=== PATIENT | female | born 1970 | race Caucasian/White ===

== ENCOUNTER 2017-03-31 08:30 | Emergency (ER) | payer BC ==
[~2017-03-31] VITALS: Ht 157.5 cm; Wt 68.0 kg
[2017-03-31 08:32] VITALS: TEMP 37; Ht 157.5 cm; Wt 68.0 kg
[2017-03-31] MEDS ORDERED: SODIUM CHLORIDE 0.9% 1000ML 1,000 ML IV STA (09:07)
[2017-03-31] MEDS ORDERED: SODIUM CHLORIDE 0.9% 1000ML 2,000 ML IV STA (09:07)
[2017-03-31] MEDS ORDERED: CHOL1000 PO (09:24)
[2017-03-31] MEDS ORDERED: CITA20TA9 PO (09:24)
[2017-03-31] MEDS ORDERED: TRAZ50TA35 PO (09:24)
[2017-03-31] MEDS ORDERED: DOCU-94 PO (09:24)
[2017-03-31 09:39] LABS: BASO % 0.1 %; BASO ABS # 0.02 K/uL (0-0.2); COMPLETE YES; EOS % 0.1 %; HEMATOCRIT 39.5 % (37-47); IG% 0.4 %; LYMPH % 7.2 %; LYMPH ABS # 1.48 K/uL (1.2-3.4); MEAN CORPUSCULAR HEMOGLOBIN 31.3 pg (25-34); MEAN CORPUSCULAR HGB CONC 35.2 g/dl (32-36); MEAN PLATELET VOLUME 9.5 fL (7.4-10.4); MONO % 7.9 %; NEUT % 84.3 %; PLATELET COUNT 232 K/uL (130-400); RED BLOOD COUNT 4.44 M/uL (4.2-5.4); WHITE BLOOD COUNT 20.53 K/uL (4.8-10.8)
[2017-03-31 09:56] LABS: BUN/CREATININE RATIO 11.3 (10-20); CALCIUM 8.9 mg/dl (8.5-10.1); CREATININE 0.91 mg/dl (0.60-1.20); POTASSIUM 2.8 mmol/L (3.5-5.1)
[2017-03-31 09:59] LABS: ALB/GLOB RATIO 0.9 (0.9-2)
[2017-03-31 10:00] LABS: PREG INTERNAL NEGATIVE QC NEG CLEAR BACKGROUND; PREG INTERNAL POSITIVE QC POS CONTROL LINE
--- NOTE | 2017-03-31 10:02 | DIAGNOSTIC IMAGING REPORT ---
CT FACIAL BONES-MXILLOFAC WITHOUT CT DOSE: CLINICAL HISTORY: Facial pain status post trauma. Syncope. Dizziness. COMPARISON STUDY: No previous studies for comparison. TECHNIQUE: Helical images were acquired in the transverse plane. The study was reviewed and analyzed on the independent 3-D workstation. The pterygoid plates appear intact. The zygomatic arches appear intact. The globes appear intact. There is no evidence of orbital emphysema. The orbital childress and floor appear intact. The mandibular condyles appear intact. There is right frontal scalp edema. There is mild pansinus mucosal thickening. IMPRESSION: No facial fractures identified. Electronically signed by: Ant Nolasco M.D. 03/31/2017 10:01 AM Dictated Date/Time: 03/31/2017 9:59 AM
--- NOTE | 2017-03-31 10:02 | DIAGNOSTIC IMAGING REPORT ---
HEAD CT NONCONTRAST CT DOSE: 843.28 mGy.cm HISTORY: Trauma SYNCOPAL EPISODE, DIZZY, HEAD TRAUMA TECHNIQUE: Multiaxial CT images of the head were performed without the use of intravenous contrast. Comparison: None. Findings: The paranasal sinuses and mastoid air cells are clear. The calvarium and skull base are intact. The ventricles and sulci are within normal limits. There is no mass, hematoma, midline shift, or acute infarct. Impression: No acute intracranial abnormality. Electronically signed by: Jean Acharya M.D. 03/31/2017 10:01 AM Dictated Date/Time: 03/31/2017 9:59 AM
[2017-03-31] MEDS ORDERED: POTASSIUM CHLORIDE 10 MEQ / 100ML WTR IV STA (10:13)
[2017-03-31] MEDS ORDERED: POTASSIUM CHLORIDE 10 MEQ TABCR PO STA (10:13)
[2017-03-31] MEDS ORDERED: ONDANSETRON INJ 2 MG/ML 2 ML VIAL IV STA (10:36)
[2017-03-31] MEDS ORDERED: LORAZEPAM 2 MG/ML 1 ML VIAL IV STA (10:36)
[2017-03-31 10:51] LABS: URINE APPEARANCE CLEAR (CLEAR); URINE BILIRUBIN NEG (NEG); URINE COLOR YELLOW; URINE EPITHELIAL CELL AUTO >30 /lpf (0-5); URINE NITRITE NEG (NEG); URINE SPECIFIC GRAVITY 1.005 (1.000-1.030); UROBILINOGEN NEG (NEG)
[2017-03-31 10:52] LABS: MANUAL MICROSCOPIC REQUIRED? NO; REVIEW REQ? NO
--- NOTE | 2017-03-31 10:54 | DIAGNOSTIC IMAGING REPORT ---
ABDOMEN 2VIEW W/PA CHEST RTN CLINICAL HISTORY: DIARRHEA, DIZZY, SYNCOPAL EPISODE dyspnea COMPARISON STUDY: No previous studies for comparison. FINDINGS: The soft tissues, psoas shadows, renal outlines and intestinal gas pattern appear normal. There is no evidence for bowel obstruction. There is no evidence for free intraperitoneal air. No abnormal abdominal calcifications are seen. A frontal view of the chest was performed and is unremarkable. IMPRESSION: Normal study. Electronically signed by: Jean Acharya M.D. 03/31/2017 10:52 AM Dictated Date/Time: 03/31/2017 10:52 AM
--- NOTE | 2017-03-31 12:44 | EMERGENCY ROOM VISIT NOTE ---
History First contact with patient: 08:41 Chief Complaint: NAUSEA Stated Complaint: NAUSEA,DIZZINESS,DIARRHEA History of Present Illness Patient is a generally healthy 38-year-old white female who presents to emergency department for evaluation of nausea, chills and diarrhea with associated syncopal episodes. Her symptoms started yesterday. She lives near [place] and was traveling here locally to visit family. Yesterday while in the car she noted feeling queasy, nauseous and having chills. Her diarrhea started around 5 PM last evening. She reported feeling subjectively hot and cold. She had multiple loose, watery bowel movements. She states that the diarrhea was essentially only liquid. Around 8 PM last night she went into the bathroom to have a bowel movement. She remembers being on the toilet, then remembers waking up and the floor of the bathroom. She had to get back on the toilet, and again passed out falling to the ground. She injured the bridge of the nose, and noted some bruising around her left eye after that fall. She reports getting up around 2 AM to go to the bathroom, and her reported hearing her fall in the bathroom. At that time she hit her right forehead when she passed out. He attended to her immediately. She was only unconscious for a few seconds. There was no seizure-like activity or incontinence. He accompanied her to the bathroom at 7:00 this morning and states that she passed out on the toilet for a few seconds, this time did not fall, as he was standing there. Her last episode of diarrhea was just prior to arrival. She denies blood. She denies any abdominal pain. She did take some Motrin last evening. She reports feeling very dizzy. Any position changes make her feel dizzy like she might pass out. Patient denies any unusual food or water consumption recently. She has been on multiple antibiotics recently for sinusitis, and then again after a skin cancer excision. She was on Augmentin, Ceftin and Keflex within the last several months. She denies any fever. There has been no vomiting. She denies any urinary symptoms. Review of Systems Review of systems as per HPI. All other systems reviewed were negative. 10 systems reviewed. Past Medical/Surgical History Medical Problems: (1) No Known Active Medical Problems Surgical Problems: (1) History of endometrial ablation (2) History of melanoma excision Electronic medical records are reviewed and summarized as above/below. See Problem List. Social History Smoking Status: Never Smoker Marital Status: Housing Status: lives with significant other Occupation Status: employed Current/Historical Medications Scheduled Cholecalciferol (Vitamin D3), 1 TAB PO DAILY Citalopram Hydrobromide (Celexa), 1 TAB PO QPM Trazodone Hcl (Trazodone), 75 MG PO QPM Scheduled PRN Docusate Sodium (Colace), 1 CAP PO DAILY PRN for Constipation Allergies Coded Allergies: No Known Allergies (Unverified , 03/31/17) Physical Exam Vital Signs Date Time Temp Pulse Resp B/P Pulse Ox O2 Delivery O2 Flow Rate FiO2 03/31/17 12:54 99 14 93/62 99 03/31/17 11:47 96 18 110/63 100 Room Air 03/31/17 10:51 90 21 106/56 99 Room Air 03/31/17 10:08 88 18 103/59 97 99 101/61 99 97/92 03/31/17 08:47 83 03/31/17 08:32 37.0 99 20 92/62 98 Room Air Physical Exam GENERAL: Patient is a well-appearing 46-year-old white female who is awake and alert and in moderate distress due to her dizziness. HEENT: Head -large right prefrontal hematoma. Pupils are equal, round, and reactive to light. Extraocular eye muscles are intact and sclera are anicteric. Ears - bilaterally patent canals with no evidence of hemotympanum. Nose - slight abrasion noted to the nasal bridge, moist nasal mucosa without evidence of trauma or discharge. Mouth - moist buccal mucosa with no trauma to the teeth or signs of malocclusion. Ecchymosis noted inferior to the left eye. She is tenderness in the left orbital bones. Neck: The neck is supple and there is no pain to palpation over the posterior cervical spine and no obvious step-offs or deformities. There is no JVD or tracheal deviation. Chest: There are no signs of deformities, contusions or abrasions to the chest wall. There is no obvious crepitus or paradoxical chest rise. Heart: Regular rate, and regular rhythm. There is a normal S1 and S2 with no murmurs, clicks, or gallops appreciated. Lungs: Breath sounds equal and clear to auscultation without wheezes, rales, or rhonchi heard. Abdomen: Bowel sounds are present. Abdomen is soft, nontender, nondistended. No guarding, rebound or rigidity noted. Extremities: No obvious trauma, deformities, contusions, or edema. There are easily palpable peripheral pulses. Neuro: The patient is awake and alert and easily able to follow commands. Muscle strength is 5 out of 5 in all 4 extremities. Otherwise, neuro exam is unremarkable. Back: The entire thoracic, lumbar, and sacral spine were palpated. No discomfort over the thoracic spine and lumbar spine. There are no obvious step- offs or deformities noted. There are no obvious signs of trauma such as contusions abrasions penetrations noted to the back. Medical Decision & Procedures ER Provider Diagnostic Interpretation: ABDOMEN 2VIEW W/PA CHEST RTN CLINICAL HISTORY: DIARRHEA, DIZZY, SYNCOPAL EPISODE dyspnea COMPARISON STUDY: No previous studies for comparison. FINDINGS: The soft tissues, psoas shadows, renal outlines and intestinal gas pattern appear normal. There is no evidence for bowel obstruction. There is no evidence for free intraperitoneal air. No abnormal abdominal calcifications are seen. A frontal view of the chest was performed and is unremarkable. IMPRESSION: Normal study. HEAD CT NONCONTRAST CT DOSE: 843.28 mGy.cm HISTORY: Trauma SYNCOPAL EPISODE, DIZZY, HEAD TRAUMA TECHNIQUE: Multiaxial CT images of the head were performed without the use of intravenous contrast. Comparison: None. Findings: The paranasal sinuses and mastoid air cells are clear. The calvarium and skull base are intact. The ventricles and sulci are within normal limits. There is no mass, hematoma, midline shift, or acute infarct. Impression: No acute intracranial abnormality. CT FACIAL BONES-MXILLOFAC WITHOUT CT DOSE: CLINICAL HISTORY: Facial pain status post trauma. Syncope. Dizziness. COMPARISON STUDY: No previous studies for comparison. TECHNIQUE: Helical images were acquired in the transverse plane. The study was reviewed and analyzed on the independent 3-D workstation. The pterygoid plates appear intact. The zygomatic arches appear intact. The globes appear intact. There is no evidence of orbital emphysema. The orbital childress and floor appear intact. The mandibular condyles appear intact. There is right frontal scalp edema. There is mild pansinus mucosal thickening. IMPRESSION: No facial fractures identified. Laboratory Results 03/31/17 09:15 Red Blood Count 4.44, Mean Corpuscular Volume 89.0, Mean Corpuscular Hemoglobin 31.3, Mean Corpuscular Hemoglobin Concent 35.2, Mean Platelet Volume 9.5, Neutrophils (%) (Auto) 84.3, Lymphocytes (%) (Auto) 7.2, Monocytes (%) (Auto) 7.9, Eosinophils (%) (Auto) 0.1, Basophils (%) (Auto) 0.1, Neutrophils # (Auto) 17.31, Lymphocytes # (Auto) 1.48, Monocytes # (Auto) 1.62, Eosinophils # (Auto) 0.02, Basophils # (Auto) 0.02 03/31/17 09:15 Test 03/31/17 09:15 03/31/17 09:27 03/31/17 10:15 White Blood Count 20.53 K/uL (4.8-10.8) Red Blood Count 4.44 M/uL (4.2-5.4) Hemoglobin 13.9 g/dL (12.0-16.0) Hematocrit 39.5 % (37-47) Mean Corpuscular Volume 89.0 fL (80-100) Mean Corpuscular Hemoglobin 31.3 pg (25-34) Mean Corpuscular Hemoglobin Concent 35.2 g/dl (32-36) Platelet Count 232 K/uL (130-400) Mean Platelet Volume 9.5 fL (7.4-10.4) Neutrophils (%) (Auto) 84.3 % Lymphocytes (%) (Auto) 7.2 % Monocytes (%) (Auto) 7.9 % Eosinophils (%) (Auto) 0.1 % Basophils (%) (Auto) 0.1 % Neutrophils # (Auto) 17.31 K/uL (1.4-6.5) Lymphocytes # (Auto) 1.48 K/uL (1.2-3.4) Monocytes # (Auto) 1.62 K/uL (0.11-0.59) Eosinophils # (Auto) 0.02 K/uL (0-0.5) Basophils # (Auto) 0.02 K/uL (0-0.2) RDW Standard Deviation 40.0 fL (36.4-46.3) RDW Coefficient of Variation 12.4 % (11.5-14.5) Immature Granulocyte % (Auto) 0.4 % Immature Granulocyte # (Auto) 0.08 K/uL (0.00-0.02) Anion Gap 10.0 mmol/L (3-11) Est Creatinine Clear Calc Drug Dose 68.4 ml/min Estimated GFR () 86.5 Estimated GFR (Non- 74.6 BUN/Creatinine Ratio 11.3 (10-20) Calcium Level 8.9 mg/dl (8.5-10.1) Total Bilirubin 0.6 mg/dl (0.2-1) Aspartate Amino Transf (AST/SGOT) 13 U/L (15-37) Alanine Aminotransferase (ALT/SGPT) 17 U/L (12-78) Alkaline Phosphatase 77 U/L (45-117) Total Protein 7.2 gm/dl (6.4-8.2) Albumin 3.4 gm/dl (3.4-5.0) Globulin 3.8 gm/dl (2.5-4.0) Albumin/Globulin Ratio 0.9 (0.9-2) Lipase 74 U/L (73-393) Human Chorionic Gonadotropin, Qual NEG (NEG) Bedside Troponin I 0.000 ng/ml (0-0.045) Urine Color YELLOW Urine Appearance CLEAR (CLEAR) Urine pH 6.0 (4.5-7.5) Urine Specific [place] 1.005 (1.000-1.030) Urine Protein NEG (NEG) Urine Glucose (UA) NEG (NEG) Urine Ketones NEG (NEG) Urine Occult Blood TRACE (NEG) Urine Nitrite NEG (NEG) Urine Bilirubin NEG (NEG) Urine Urobilinogen NEG (NEG) Urine Leukocyte Esterase TRACE (NEG) Urine WBC (Auto) 1-5 /hpf (0-5) Urine RBC (Auto) 0-4 /hpf (0-4) Urine Hyaline Casts (Auto) 1-5 /lpf (0-5) Urine Epithelial Cells (Auto) >30 /lpf (0-5) Urine Bacteria (Auto) NEG (NEG) Medications Administered Medications (Trade) Dose Ordered Sig/Sarah Route Start Time Stop Time Status Last Admin Dose Admin Sodium Chloride 2,000 ml @ 999 mls/hr Q2H1M STAT IV 03/31/17 09:07 03/31/17 11:07 DC 03/31/17 09:30 999 MLS/HR Sodium Chloride (Nss 1000ml) 1,000 ml @ 250 mls/hr Q4H STAT IV 03/31/17 09:07 03/31/17 13:06 DC 03/31/17 10:35 250 MLS/HR Potassium Chloride (Klor-Con M10) 40 meq NOW STAT PO 03/31/17 10:13 03/31/17 10:15 DC 03/31/17 10:34 40 MEQ Potassium Chloride (Kcl 10 Meq / Wtr) 10 meq NOW STAT IV 03/31/17 10:13 03/31/17 10:15 DC 03/31/17 10:34 10 MEQ Ondansetron HCl (Zofran Inj) 4 mg NOW STAT IV 03/31/17 10:36 03/31/17 10:37 DC 03/31/17 10:49 4 MG Lorazepam (Ativan Inj) 1 mg NOW STAT IV 03/31/17 10:36 03/31/17 10:37 DC 03/31/17 10:49 1 MG Lorazepam (Ativan 1MG Home Pack) 1 homepack UD ONCE PO 03/31/17 13:00 03/31/17 13:01 DC 03/31/17 12:53 1 HOMEPACK ECG Indication: syncope Rate (beats per minute): 85 Rhythm: normal sinus Findings: nonspecific-ST abn, prolonged QT (QT/QTc 404/480) Comparison ECG Date: no prior available ED Course The patient was seen and assessed as above. She has no old records at our facility for review. IV access was obtained and she was hydrated with a total of 2 L of normal saline solution IV bolus, then 250 mL per hour. Laboratory studies were collected including CBC with differential, CMP, lipase, serum hCG and [id number] troponin. EKG was performed and was as noted above. Acute abdominal series and had a maxillofacial CT scans were obtained. The patient was orthostatic and symptomatic with orthostatic vital signs and position changes. Initially she had declined medication needs, but later did request something for the dizziness and was given Zofran 4 mg IV and Ativan 1 mg IV. EKG was as noted above, without evidence for acute ischemic changes, however prolonged QT was noted. She has no old available for review. Acute abdominal series was unremarkable. Head and maxillofacial CT scans were negative for posttraumatic findings. Laboratory studies noted a white count of 20,000, with left shift likely related to her diarrheal illness. Electrolytes noted the patient to be hypokalemic with a potassium of 2.8 which was repleted with 10 mEq IV and 40 mEq orally. Remainder of her electrolytes and renal functions are normal. Liver functions are not elevated. Lipase is not indicative of acute pancreatitis. test is negative. [id number] troponin is negative 1. All laboratory and diagnostic imaging studies were reviewed with attending physician. Patient was given oral fluids and crackers and a clear liquid lunch tray in the emergency department which she tolerated well. She was unable to provide a stool sample for analysis. The patient reported that her symptoms had improved. She was still a little bit dizzy with position changes although not as severe as she had initially. All laboratory and diagnostic studies were discussed with her and her at length. She appears to be dehydrated and orthostatic from the diarrheal illness, which caused her to suffer a few syncopal episodes earlier today. Her presentation is not consistent with seizure, arrhythmia or CVA. She was found to be hypokalemic with a potassium of 2.8. She was hydrated aggressively in the emergency department. Her abdominal exam is otherwise benign. She does not have any evidence for acute intracranial bleed or skull fracture from the falls. Conservative care measures were discussed. She was encouraged to rest and remain well-hydrated, and was advised to follow-up with her primary care provider later this week for recheck of her laboratory studies. Certainly at any point if her symptoms worsen she should seek immediate medical attention and she expressed understanding of this. Differential diagnoses entertained included infectious versus inflammatory colitis including C. difficile, food borne illness, viral illness, bowel obstruction, perforation, arrhythmia, seizure, acute coronary syndrome, orthostasis, dehydration, electrolyte abnormalities, anemia, hypoglycemia, among others. Medical Decision See ED course. Impression Primary Impression: Diarrhea Additional Impressions: Hypokalemia Syncopal episodes Orthostatic hypotension Departure Information Referrals No Doctor, Assigned (PCP) Patient Instructions My [facility] Additional Instructions Acetaminophen(Tylenol) may be used for fever or pain. Use 1000mg every eight hours as needed. Avoid using more than 3000mg in a 24 hour period. This is available over the counter. Rest and drink plenty of fluids as tolerated. Slow sips of water or sports drinks are recommended instead of large amounts all at once. Continue current medications. Once your stomach is settled start with a clear liquid diet (jello, soup broth, etc.) and then advance as tolerated. You should avoid full, heavy meals for about 24 hrs from the time your symptoms resolved. Return to the ER immediately for worsening or persistent abdominal pain, vomiting, fevers, chest pains, difficulty breathing, black or bloody stools, worsening of your condition, or as needed. Follow up with your primary physician in 1-2 days for a recheck of your current condition. Problem Qualifiers
[2017-03-31 12:54] VITALS: BP 93/62; PULSE 99; O2SAT 99
[2017-03-31] MEDS ORDERED: ATIVAN 1MG HOMEPACK PO ONE (13:00)
== END 2017-03-31 13:02 | disposition home or self-care (01) ==
LOC: C.EDB 08:32 → C.EDA 13:02
DX: R19.7 Diarrhea, unspecified (principal); E87.6 Hypokalemia; R55 Syncope and collapse; I95.1 Orthostatic hypotension; Z79.899 Other long term (current) drug therapy